=== PATIENT | female | born 1970 | race Caucasian/White ===

== ENCOUNTER 2020-10-07 09:08 | Outpatient (CLI) | payer BC ==
[2020-10-07] MEDS ORDERED: MULT-658 PO (09:59)
[2020-10-07] MEDS ORDERED: METH2.5T PO (09:59)
[2020-10-07] MEDS ORDERED: FOLI1TAB32 PO (09:59)
[2020-10-07] MEDS ORDERED: LIFI1DRO EACHEYE (09:59)
[2020-10-07] MEDS ORDERED: MELO15TA24 PO (09:59)
[2020-10-07 10:14] LABS: BASOPHILS % (AUTO) 0 % (0-1); EOSINOPHILS % (AUTO) 1 % (1-7); LYMPHOCYTES % (AUTO) 27 % (22-44); MEAN CORPUSCULAR HEMOGLOBIN 30.8 pg (27.0-34.8); MEAN CORPUSCULAR HGB CONC 34.8 g/dL (32.4-35.8); MEAN PLATELET VOLUME 7.7 fL (7.4-10.4); MONOCYTES % (AUTO) 9 % (2-9); NEUTROPHILS % (AUTO) 62 % (42-75); PLATELET COUNT 243 x10^3/uL (130-400); RED BLOOD COUNT 4.66 x10^6/uL (3.82-5.3); RED CELL DISTRIBUTION WIDTH 13.7 % (9.6-15.2)
[2020-10-07 10:23] LABS: ALANINE AMINOTRANSFERASE 24 U/L (12-78); ALBUMIN 3.9 g/dL (3.4-5.0); ANION GAP 5 mmol/L (5-15); CALCIUM 8.8 mg/dL (8.5-10.1); CHLORIDE 110 mmol/L (98-107); CREATININE 0.73 mg/dL (0.55-1.02)
[2020-10-07 10:24] LABS: MICROSCOPIC AUTO
[2020-10-07 10:28] LABS: ALKALINE PHOSPHATASE 52 U/L (45-117); BILIRUBIN,TOTAL 0.5 mg/dL (0.2-1.0); TOTAL PROTEIN 7.6 g/dL (6.4-8.2)
== END 2020-10-07 23:59 | disposition home or self-care (01) ==
LOC: STAR 09:08
PROVIDERS: ATTEND Obstetrics & Gynecology Gynecology
DX: Z01.818 Encounter for other preprocedural examination (principal); Z20.822 Contact with and (suspected) exposure to COVID-19; N84.0 Polyp of corpus uteri; N89.8 Other specified noninflammatory disorders of vagina
CPT/HCPCS: 36415; 71046; 80053; 81001; 84702; 85025; 93005; U0003; U0005

== ENCOUNTER 2020-10-13 08:15 | Day surgery (SDC) | payer BC ==
[~2020-10-13] VITALS: Ht 157.5 cm; Wt 74.7 kg
[~2020-10-13 08:15] MED LIST: FOLI1TAB32 PO; LIFI1DRO EACHEYE; MELO15TA24 PO; METH2.5T PO; MULT-658 PO
[2020-10-13 08:45] VITALS: BP 125/84
[2020-10-13] MEDS ORDERED: CHLORHEXIDINE 15 ML UDC ONE (08:48)
[2020-10-13 08:55] LABS: HCG UR SG 1.017 (1.003-1.030)
[2020-10-13] MEDS ORDERED: LACTATED RINGERS 1,000 ML IV SCH (09:00)
[2020-10-13] MEDS ORDERED: CHLORHEXIDINE 15 ML UDC PO ONE (09:00)
[2020-10-13] MEDS ORDERED: LIDOCAINE-MPF 1%, 2ML ONE (09:11)
[2020-10-13] MEDS ORDERED: LIDOCAINE-MPF 1%, 2ML INFIL ONE (09:30)
[2020-10-13] MEDS ORDERED: PROPOFOL 10 MG/ML, 20ML ONE (10:13)
[2020-10-13] MEDS ORDERED: LIDOCAINE-MPF 2% ,5ML ONE (10:13)
[2020-10-13] MEDS ORDERED: SILVER NITRATE STICK TP ONE (10:20)
[2020-10-13] MEDS ORDERED: ONDANSETRON 2MG/ML, 2ML ONE (10:29)
[2020-10-13] MEDS ORDERED: FENTANYL PF 100 MCG/2ML IV PRN (10:30)
[2020-10-13] MEDS ORDERED: ACETAMINOPHEN 325 MG TABLET PO PRN (10:30)
[2020-10-13] MEDS ORDERED: morphine SULFATE 10 MG/ML, 1ML IVPush PRN (10:30)
[2020-10-13] MEDS ORDERED: HYDROcodone/APAP 7.5-325MG/15ML UDC PO PRN (10:30)
[2020-10-13] MEDS ORDERED: PROMETHAZINE 25 MG/ML, 1ML IVPush PRN (10:30)
[2020-10-13] MEDS ORDERED: DEXAMETHASONE 4 MG/ML, 1ML ONE (10:54)
[2020-10-13] MEDS ORDERED: FENTANYL PF 100 MCG/2ML ONE (11:01)
== END 2020-10-13 12:30 | disposition home or self-care (01) ==
LOC: OUT 08:15
PROVIDERS: ATTEND Obstetrics & Gynecology Gynecology
DX: N93.9 Abnormal uterine and vaginal bleeding, unspecified (principal); N84.0 Polyp of corpus uteri; N89.8 Other specified noninflammatory disorders of vagina; N94.10 Unspecified dyspareunia; Z79.1 Long term (current) use of non-steroidal anti-inflammatories (NSAID); Z79.899 Other long term (current) drug therapy
CPT/HCPCS: 36415; 57100; 58558; 81025; 86850; 86900; 88305; J1100; J2405; J2704; J3010